=== PATIENT | male | born 1950 | race Caucasian/White ===

== ENCOUNTER → 2017-07-08 | Day surgery (SDC) | payer MEDICARE, BC ==
[~2017-07-08] VITALS: Ht 180.3 cm; Wt 100.0 kg
[~2017-07-08] MED LIST: AMLO10TA2 PO; BUPIVACAINE HCL PF 0.5% 10 ML VIAL ONE; CEPH-459 PO; CHLORHEXIDINE GLUCONATE 2 % 1 PACK (2 CLOTHS) TOPICAL PRN; FAMOTIDINE 20 MG/2 ML VIAL ONE; HYDR-3288 PO; IPRA0.06 INH; LACTATED RINGER'S 1000 ML IV PRN; LEVO.1 PO; LIDOCAINE HCL 2% 50 ML VIAL ONE; MESA400C PO; MESA400C2 PO; METOPROLOL TARTRATE 25 MG TAB PO PRN; MIDAZOLAM HCL 5 MG/ML VIAL (1 ML) ONE; MONT10TA2 PO; NEOMYCIN/POLYMYXIN 1 ML G.U. IRRIGANT ONE; POVIDONE IODINE 5% (ANTISEPSIS KIT) 4 APPLICATIONS EACH NARE PRN; PROPOFOL 200 MG/20 ML AMP ONE; RESP: ALBUTEROL 2.5 MG/3 ML NEB (PRN) ONE; SODIUM CHLORID 0.9% 500 ML IV PRN; SYMB80AE INH; VALS1TAB64 PO; VENTAER INH; ceFAZolin 1,000 MG/NS 100 ML IV SCH
[2017-07-08 08:08] VITALS: PULSE 77
[2017-07-08 10:05] VITALS: BP 134/73; PULSE 86; RESP 20; TEMP 98.5; O2SAT 95
--- NOTE | 2017-07-08 10:57 | MP ---
cc: Yandel Madden MD DATE OF OPERATION: 07/08/2017 PREOPERATIVE DIAGNOSIS: Right fourth and fifth Dupuytren's contractures. POSTOPERATIVE DIAGNOSIS: 1. Right fourth palmar fasciectomy to the PIP joint. 2. Right fifth finger palmar fasciectomy to the PIP joint. SURGEON: Louis. Chano III, MD PROCEDURE: The patient was brought to the operating room, placed supine on the operating table. After the correct site and side of surgery were verified by members of each team in the room multiple times including the patient and myself and after adequate preoperative marking and preoperative written consent was verified by everyone and after adequate preoperative time-out was performed to everyone's satisfaction and after adequate anesthesia had been achieved with an axillary block, the right upper extremity was prepped and draped in the traditional sterile surgical fashion. 2% plain lidocaine was then used subcutaneously near the planned incisions. The limb was exsanguinated with an Suman wrap. A highly placed well-padded axillary tourniquet was inflated to 200 mmHg for a total of 38 minutes. The hand was placed palm up and hand incisions were made with angles crossing flexion creases. Blunt and sharp dissection was performed. Bipolar electrocautery was used as needed. The palmar fascia was identified, dissected free from the surrounding tissue and the skin out to the PIP joints of the fourth and fifth fingers. Neurovascular bundles were identified and protected the entire time and were in continuity at the end of the case. The large fibrotic mass from the 5th finger was passed as a separate specimen. The palmar fascia was resected from its extension up into the fifth finger and into the fourth finger out to the PIP joints on both fingers. There were no other areas of fibrosis identified. There were no other masses. The neurovascular bundles were all examined. They were found to be in continuity. The axillary tourniquet was released after 38 minutes. The hand and all the fingers became immediately soft, pink, and warm and had brisk capillary refill of less than 2 seconds including the small finger after the little spasm wore off. Thorough irrigation was used with saline was performed. The skin edges were then reapproximated using interrupted and running 4-0 nylon sutures. Some advancement flaps had to be made to redirect any tension and this was done easily. The fingers were completely fully extended at all joints with no tension on the skin edges. The hand and arm were thoroughly cleansed and dried. A small 1/4 inch Jose drain split in half longitudinally was made and left coming out through the skin in the palm. Betadine Adaptic dressings were applied on top of the wound followed by a bulky soft dressing and a volar immobilizing extension splint short arm length was made in the usual fashion. The patient was awakened from anesthesia and transferred to the postanesthesia care unit awake and in stable condition at the end of the case. The sponge, needle and instrument counts were correct at the end of the case as reported by nurses in the room. MD TEZ Austin/ALETHA , 10:18 AM , 10:56 AM
--- NOTE | 2017-07-08 22:10 | EKG ---
Date Performed: 07/08/2017 Time Performed: 07:01:22 PTAGE: 66 years EKG: Sinus rhythm NORMAL ECG NO PREVIOUS TRACING DOCTOR: Chencho Pacheco Interpretating Date/Time 07/08/2017 22:09:47
== END | disposition home or self-care (01) ==
LOC: PHSDC 06:10
PROVIDERS: ATTEND Orthopaedic Surgery Hand Surgery
DX: M72.0 Palmar fascial fibromatosis [Dupuytren] (principal); Z01.810 Encounter for preprocedural cardiovascular examination
CPT/HCPCS: 01810; 01991; 26123; 26125; 64417; 88304; 93005; J0690; J2250; J7120; J7613; 88305